=== PATIENT | female | born 1990 | race Asian ===

== ENCOUNTER → 2018-07-27 | Outpatient (CLI) | payer OTHER | END | disposition home or self-care (01) | LOC: RADPV 12:55 | PROVIDERS: ATTEND Internal Medicine Geriatric Medicine | DX: E04.9 Nontoxic goiter, unspecified (principal) | CPT/HCPCS: 76536 ==

== ENCOUNTER → 2018-09-11 | Outpatient (CLI) | payer OTHER | END | disposition home or self-care (01) | LOC: LABPV 11:36 | PROVIDERS: ATTEND Obstetrics & Gynecology | DX: Z11.3 Encounter for screening for infections with a predominantly sexual mode of transmission (principal) | CPT/HCPCS: 86592; 86803; 87340 ==

== ENCOUNTER → 2018-09-11 | Outpatient (CLI) | payer OTHER ==
[2018-09-11 12:41] LABS: EOSINOPHILS % (AUTO) 1.8 % (1.0-6.0); HEMATOCRIT 41.5 % (36-46); HEMOGLOBIN 13.6 g/dL (12.0-16.0); LYMPHOCYTES # (AUTO) 2.2 K/uL (1.0-4.8); LYMPHOCYTES % (AUTO) 31.7 % (22.0-44.0); MEAN CORPUSCULAR HEMOGLOBIN 28.5 pg (26.0-34.0); MEAN CORPUSCULAR HGB CONC 32.7 G/dL (31.0-37.0); MEAN CORPUSCULAR VOLUME 87 fL (80-100); MONOCYTES # (AUTO) 0.4 K/uL (0.1-1.0); MONOCYTES % (AUTO) 6.1 % (2.0-9.0); NEUTROPHILS # (AUTO) 4.2 K/uL (1.8-7.7); NEUTROPHILS % (AUTO) 59.4 % (40.0-70.0); PLATELET COUNT (AUTO) 377 K/uL (150-450); RED BLOOD CELL COUNT(AUTO) 4.76 MIL/uL (4.00-5.20)
[2018-09-11 13:20] LABS: APPEARANCE,URINE CLEAR (CLEAR); BILIRUBIN,URINE NEGATIVE (NEGATIVE); GLUCOSE, URINE (UA) NEGATIVE (NEGATIVE); KETONES,URINE NEGATIVE (NEGATIVE); LEUKOCYTE ESTERASE ,URINE TRACE (NEGATIVE); NITRATE,URINE NEGATIVE (NEGATIVE); OCCULT BLOOD,URINE NEGATIVE (NEGATIVE); PH,URINE 6.5 (5.0-8.0); PROTEIN,URINE NEGATIVE (NEGATIVE); UROBILINOGEN,URINE 0.2 mg/dL (<=1.0)
[2018-09-11 13:33] LABS: BACTERIA,URINE Rare /HPF (None Seen); RBC,URINE None Seen /HPF (0-2); SQUAMOUS EPITHELIAL CELL,UR Few /LPF (None Seen); WBC,URINE 0-2 /HPF (0-5)
[2018-09-11 13:41] LABS: ERYTHROCYTE SEDIMENTATION RATE 18 MM/HR (0-20)
[2018-09-11 14:08] LABS: FOLATE SERUM 11.8 ng/mL (5.4-)
[2018-09-12 09:42] LABS: HIV 1-2 SCREEN 4TH GEN W/RFLX Non Reactive (Non Reactive)
[2018-09-16 04:35] LABS: HIV 1&2 ANTIBODIES NOTE Negative; HIV1 RNA QUAL. (NAA) Negative (Negative)
== END | disposition home or self-care (01) ==
LOC: LABPV 11:39
PROVIDERS: ATTEND Internal Medicine Rheumatology
DX: E55.9 Vitamin D deficiency, unspecified (principal); D64.9 Anemia, unspecified; M35.00 Sjogren syndrome, unspecified; E11.9 Type 2 diabetes mellitus without complications; R94.5 Abnormal results of liver function studies; M06.9 Rheumatoid arthritis, unspecified; N39.0 Urinary tract infection, site not specified
CPT/HCPCS: 80074; 82306; 82607; 82746; 85651; 86038; 86140; 86160; 86225; 86235; 86256; 86376; 86701; 86702; 86800; 87389; 87535

== ENCOUNTER 2019-01-29 19:44 | Emergency (ER) | payer OTHER ==
[~2019-01-29] VITALS: Ht 154.9 cm; Wt 53.6 kg
[2019-01-29 19:50] VITALS: BP 125/76
== END 2019-01-29 20:10 | disposition home or self-care (01) ==
LOC: EMS 19:45
DX: H00.014 Hordeolum externum left upper eyelid (principal); Z88.1 Allergy status to other antibiotic agents; Z88.8 Allergy status to other drugs, medicaments and biological substances

== ENCOUNTER 2019-05-23 21:46 | Emergency (ER) | payer OTHER ==
[~2019-05-23] VITALS: Ht 154.9 cm; Wt 56.8 kg
[2019-05-23 22:43] VITALS: BP 116/72
[2019-05-23 22:48] LABS: BASOPHILS % (AUTO) 0.9 % (0.0-2.0); EOSINOPHILS % (AUTO) 2.4 % (1.0-6.0); HEMATOCRIT 42.4 % (36-46); LYMPHOCYTES # (AUTO) 2.6 K/uL (1.0-4.8); LYMPHOCYTES % (AUTO) 38.2 % (22.0-44.0); MEAN CORPUSCULAR HEMOGLOBIN 29.5 pg (26.0-34.0); MEAN CORPUSCULAR VOLUME 89 fL (80-100); MONOCYTES # (AUTO) 0.4 K/uL (0.1-1.0); MONOCYTES % (AUTO) 5.8 % (2.0-9.0); NEUTROPHILS # (AUTO) 3.6 K/uL (1.8-7.7); NEUTROPHILS % (AUTO) 52.7 % (40.0-70.0); PLATELET COUNT (AUTO) 328 K/uL (150-450); RED BLOOD CELL COUNT(AUTO) 4.75 MIL/uL (4.00-5.20); RED CELL DISTRIBUTION WIDTH 13.9 % (11.5-14.5)
[2019-05-23 22:59] LABS: ANION GAP 3 mmol/L (8-16); CALCIUM, TOTAL 9.5 mg/dL (8.8-10.5); CARBON DIOXIDE 33 mmol/L (22-29); CHLORIDE 101 mmol/L (98-107); GLOMERULAR FILTR. RATE CALC > 60 mL/min (>60); GLUCOSE,RANDOM 87 mg/dL (70-110); POTASSIUM 4.1 mmol/L (3.5-5.1); SODIUM SERUM 137 mmol/L (136-145); UREA NITROGEN, BLOOD 14 mg/dL (7-18)
[2019-05-23 23:05] LABS: ALANINE AMINOTRANSFERASE 38 U/L (12-78); ALBUMIN 4.1 g/dL (3.4-5.0); ALKALINE PHOSPHATASE 46 U/L (46-116); ASPARTATE AMINOTRANSFERASE 25 U/L (15-37); BILIRUBIN,TOTAL 0.2 mg/dL (0.1-1.0)
== END 2019-05-23 22:45 | disposition home or self-care (01) ==
LOC: EMS 21:48
DX: S61.237A Puncture wound without foreign body of left little finger without damage to nail, initial encounter (principal); E03.9 Hypothyroidism, unspecified; F17.210 Nicotine dependence, cigarettes, uncomplicated; Z88.2 Allergy status to sulfonamides; Z88.1 Allergy status to other antibiotic agents; W46.0XXA Contact with hypodermic needle, initial encounter; Y93.89 Activity, other specified; Y92.239 Unspecified place in hospital as the place of occurrence of the external cause; Y99.0 Civilian activity done for income or pay
CPT/HCPCS: 86706; 86803; 87340

== ENCOUNTER 2020-02-10 03:40 | Emergency (ER) | payer OTHER ==
[~2020-02-10] VITALS: Ht 154.9 cm; Wt 59.1 kg
[2020-02-10] MEDS ORDERED: ACETAMINOPHEN 500 MG TABLET PO ONE (04:00)
[2020-02-10 04:46] VITALS: BP 143/87
== END 2020-02-10 05:09 | disposition home or self-care (01) ==
LOC: EEVIPCON 03:40 → EMS 03:40
DX: S00.83XA Contusion of other part of head, initial encounter (principal); F17.210 Nicotine dependence, cigarettes, uncomplicated; Z88.1 Allergy status to other antibiotic agents; Z88.8 Allergy status to other drugs, medicaments and biological substances; W22.8XXA Striking against or struck by other objects, initial encounter; Y93.89 Activity, other specified; Y92.89 Other specified places as the place of occurrence of the external cause; Y99.8 Other external cause status
CPT/HCPCS: 70450; 70486

== ENCOUNTER 2020-02-11 09:14 | Emergency (ER) | payer OTHER ==
[~2020-02-11] VITALS: Ht 165.1 cm; Wt 68.2 kg
[2020-02-11] MEDS ORDERED: HYDROCODONE/ACETAMINOPHEN 5-325 MG TABLET PO ONE (10:00)
[2020-02-11] MEDS ORDERED: ONDANSETRON HCL 4 MG TABLET PO ONE (10:00)
[2020-02-11 10:51] VITALS: BP 109/64
== END 2020-02-11 10:52 | disposition home or self-care (01) ==
LOC: EMS 09:19
DX: S00.83XA Contusion of other part of head, initial encounter (principal); R11.2 Nausea with vomiting, unspecified; F17.210 Nicotine dependence, cigarettes, uncomplicated; Z88.2 Allergy status to sulfonamides; Z88.8 Allergy status to other drugs, medicaments and biological substances; W51.XXXA Accidental striking against or bumped into by another person, initial encounter; Y93.89 Activity, other specified; Y92.89 Other specified places as the place of occurrence of the external cause; Y99.0 Civilian activity done for income or pay
CPT/HCPCS: 70450; 99284; Q0162

== ENCOUNTER 2020-02-18 11:34 | Emergency (ER) | payer OTHER ==
[~2020-02-18] VITALS: Ht 162.6 cm; Wt 59.1 kg
[2020-02-18] MEDS ORDERED: IBUP-2759 PO (11:38)
[2020-02-18] MEDS ORDERED: SUMA25TA9 PO (11:38)
[2020-02-18] MEDS ORDERED: TraMADol HCL 50 MG TABLET PO ONE (12:45)
[2020-02-18] MEDS ORDERED: ONDA4TAB96 PO (12:49)
[2020-02-18] MEDS ORDERED: SUMA50TA17 PO (12:49)
[2020-02-18] MEDS ORDERED: IBUP-2070 PO (12:49)
[2020-02-18 14:30] VITALS: BP 118/71
== END 2020-02-18 14:58 | disposition home or self-care (01) ==
LOC: EMS 11:36
DX: F07.81 Postconcussional syndrome (principal); F17.210 Nicotine dependence, cigarettes, uncomplicated; Z88.2 Allergy status to sulfonamides; Z88.8 Allergy status to other drugs, medicaments and biological substances; Z79.899 Other long term (current) drug therapy
CPT/HCPCS: 70551; Z7502; Z7610